=== PATIENT | male | born 1995 ===

== ENCOUNTER → 2023-01-21 | Outpatient (CLI) | payer OTHER ==
[2023-01-22 11:24] LABS: Albumin, Blood 2.8 g/dL (3.4-5.0); Albumin/Globulin Ratio 0.5 (0.8-1.8); Bilirubin, Total 0.5 mg/dL (0.1-1.0); Bun/Creatinine Ratio 9.7 (12.0-20.0); Creatinine, Blood 0.73 mg/dL (0.60-1.20); Globulin, Blood 5.2 g/dL (2.2-4.0); Potassium, Blood 5.1 mmol/L (3.5-5.5)
[2023-01-22 11:28] LABS: BASOPHILS ABSOLUTE AUTO 0.09 K/mm3 (0.00-0.23); BASOPHILS PERCENT AUTO 1 % (0-2); EOSINOPHILS ABSOLUTE AUTO 0.09 K/mm3 (0.00-0.68); EOSINOPHILS PERCENT AUTO 1 % (0-6); Hematocrit 41.6 % (37.0-53.0); Hemoglobin 13.7 g/dL (13.5-17.5); IMMATURE GRAN ABSOLUTE AUTO 0.18 K/mm3 (0.00-0.10); IMMATURE GRAN PERCENT AUTO 2 % (0-1); LYMPHOCYTES ABSOLUTE AUTO 1.87 K/mm3 (0.84-5.20); LYMPHOCYTES PERCENT AUTO 21 % (21-46); MONOCYTES ABSOLUTE AUTO 0.65 K/mm3 (0.16-1.47); MONOCYTES PERCENT AUTO 7 % (4-13); Mean Corpuscular HGB Conc 32.9 g/dL (31.5-36.5); Mean Corpuscular Volume 88 fL (80-100); Mean Platelet Volume 11.6 fL (9.1-12.4); NEUTROPHILS ABSOLUTE AUTO 5.87 K/mm3 (1.96-9.15); NEUTROPHILS PERCENT AUTO 67 % (41-73); Platelet Count 423 K/mm3 (150-400); RDW Coefficient Variation 13.4 % (11.7-14.2); RDW Standard Deviation 43.2 fL (35.1-46.3); Red Blood Cell Count 4.72 M/mm3 (4.30-5.90); White Blood Cell Count 8.75 K/mm3 (4.00-11.30)
== END | disposition home or self-care (01) ==
LOC: LAB 16:41 → LAB SHORT 16:41
PROVIDERS: Nurse Practitioner Family
DX: R53.81 Other malaise (principal); R53.83 Other fatigue
CPT/HCPCS: 80053; 85025

== ENCOUNTER 2023-06-20 11:09 | Inpatient (IN) | payer OTHER ==
[~2023-06-20] VITALS: Ht 175.3 cm; Wt 60.2 kg
[2023-06-20] VITALS (22 sets, daily range): BP systolic 98–159; BP diastolic 53–97
[2023-06-20 11:59] LABS: Albumin/Globulin Ratio 1.5 (0.8-1.8); Bilirubin, Total 2.1 mg/dL (0.1-1.0); Bun/Creatinine Ratio 8.5 (12.0-20.0); Calcium, Blood 7.6 mg/dL (8.5-10.1); Creatinine, Blood 0.59 mg/dL (0.60-1.20); Globulin, Blood 2.6 g/dL (2.2-4.0); Potassium, Blood 3.3 mmol/L (3.5-5.5); Total Protein, Blood 6.6 g/dL (6.4-8.2)
[2023-06-20 13:03] LABS: Source, Urine Condom Cath
[2023-06-20 13:13] LABS: Bilirubin, Urine Neg (Neg); Blood, Urine Neg (Neg); Glucose Qualitative, Urine 3+ (Neg); Ketones, Urine 4+ (Neg); Leukocyte Esterase, Urine Neg (Neg); Nitrite, Urine Neg (Neg); Protein, Urine Neg (Neg); Specific Gravity, Urine 1.015 (1.003-1.022); Urobilinogen, Urine NORM (Normal)
[2023-06-20 13:14] LABS: Appearance, Urine Clear (Clear); Color, Urine Pale Yellow (P-Yellow)
[2023-06-20 13:24] LABS: U Amphetamine Screen Not Detected; U Barbituate Screen Not Detected; U Benzodiazapine Screen Not Detected; U Buprenorphine Screen Not Detected; U Cannabinoids Screen Not Detected; U Cocaine Screen Not Detected; U Methadone Screen Not Detected; U Methamphetamine Screen Not Detected; U Opiates Screen Not Detected; U Oxycodone Screen Not Detected; U Phencyclidine Screen Not Detected; U Propoxyphene Screen Not Detected
[2023-06-20 13:25] LABS: BASOPHILS ABSOLUTE AUTO 0.01 K/mm3 (0.00-0.23); BASOPHILS PERCENT AUTO 0 % (0-2); EOSINOPHILS PERCENT AUTO 0 % (0-6); Hematocrit 34.2 % (37.0-53.0); IMMATURE GRAN ABSOLUTE AUTO 0.04 K/mm3 (0.00-0.10); IMMATURE GRAN PERCENT AUTO 0 % (0-1); LYMPHOCYTES ABSOLUTE AUTO 0.54 K/mm3 (0.84-5.20); LYMPHOCYTES PERCENT AUTO 5 % (21-46); MONOCYTES ABSOLUTE AUTO 0.69 K/mm3 (0.16-1.47); MONOCYTES PERCENT AUTO 6 % (4-13); Mean Corpuscular Volume 79 fL (80-100); Mean Platelet Volume 10.9 fL (9.1-12.4); NEUTROPHILS ABSOLUTE AUTO 10.37 K/mm3 (1.96-9.15); NEUTROPHILS PERCENT AUTO 89 % (41-73); Platelet Count 165 K/mm3 (150-400); RDW Coefficient Variation 11.3 % (11.7-14.2); RDW Standard Deviation 32.5 fL (35.1-46.3); Red Blood Cell Count 4.32 M/mm3 (4.30-5.90); White Blood Cell Count 11.65 K/mm3 (4.00-11.30)
[2023-06-20 13:27] LABS: Hemoglobin 12.4 g/dL (13.5-17.5); Mean Corpuscular HGB 29.4 pg (26.0-34.0)
[2023-06-20 13:28] LABS: Mean Corpuscular HGB Conc 37.1 g/dL (31.5-36.5)
--- NOTE | 2023-06-20 16:04 | NUR ---
ADMIT NOTE- PT ARRIVED ON MEDICAL FLOOR, ADMITTED THROUGH THE ED. PT AUNT AT THE BEDSIDE. PT HAS HIS EYES OPEN HOWEVER CAN NOT MEANINGFULLY RESPOND TO PEOPLE. PT HAS A NORMAL PALNTAR REFLEX THAT IS SLOW ON THE RIGHT WHEN COMPARED TO THE LEFT. THE LEFT ARM IS CONTRACTED UPON ARRIVAL, HOWEVER THE ARM IS ABLE TO BE STRAIGHTENED WITH GENTAL PRESSURE TO THE PALM. RIGHT PUPIL IS NOT VISUALIZED (PER AUNT IVAN PT BLIND IN THE RIGHT EYE SINCE ) LEFT PUPIL RESPONSE IS SLUGGISH. PT TOSSING HIS HEAD BACK AND FORTH SLOWLY EYE IS NOT TRACKING ON ANY ONE PERSON. WHEN ASKED TO TAX STAFF ACCOUNTANT STAFFS HAND WITH THE RIGHT THE PT SQUEEZES THE INDEX AND THUMB, THOSE RELEASE AND THE OTHER THREE SQUEEZE, AT NO TIME DO THEY DO SO TOGETHER. BG CHECKED 111. CALLED DR MENDEZ- PT ADMITTED FOR HYPONATREMIA. PER PT FAMILY HE DOES NOT HAVE A NORMAL PAIN RESPONSE, HE C/O RIGHT UPPER TOOTH PAIN LAST NIGHT, AND BEGAN EATING ICE AND DRINKING COPIOUS AMOUNTS OF WATER. THIS MORNING THE AUNT WENT IN TO GET HIM UP AND FOUND HIM IN THE POSITION WITH HIS ARMS CONTRACTED UNRESPONSIVE IN A BED SOAKED IN URINE STOOL AND EMESIS. THE PT IS NORMALLY INDEPEDNENT AND CONTINENT OF BOWEL AND BLADDER. ON LABS PT ELECTROLYTES ARE ALL LOW HE HAS HAD AT LEAST THREE EPISODES OF BLACK EMESIS PER THE AUNT SINCE HE ARRIVED, ED RN STATED DARK EMESIS. BG WAS 137 ON LABS.
[2023-06-20 16:22] LABS: Thyroid Stimulating Hormone 0.273 uIU/mL (0.360-4.800)
[2023-06-20 16:25] LABS: Bun/Creatinine Ratio 6.8 (12.0-20.0); Calcium, Blood 8.3 mg/dL (8.5-10.1); Creatinine, Blood 0.59 mg/dL (0.60-1.20); Potassium, Blood 3.4 mmol/L (3.5-5.5)
--- NOTE | 2023-06-20 16:48 | NUR ---
CALLED DR MENDEZ- CRITICAL VALUE NOTIFICATION SODIUM 119.
[2023-06-20 18:05] LABS: Calcium, Blood 8.2 mg/dL (8.5-10.1); Creatinine, Blood 0.63 mg/dL (0.60-1.20); Potassium, Blood 3.5 mmol/L (3.5-5.5)
--- NOTE | 2023-06-20 18:17 | NUR ---
ASSUMED CARE: PT ARRIVED FROM MEDICAL FLOOR VIA BED FOR 3% SALINE GTT DUE TO SODIUM COUNT OF 121. CALL TO DR HOLGUIN TO VERIFY ORDERS. PT'S MATERIAL FLOW ENGINEER IVAN AT BEDSIDE PROVIDING HISTORY. RIGHT PUPIL ALWAYS LARGE PER HISTORY AND LEFT PUPIL SLUGGISH, WHICH IS NEW. PT IS VERY LETHARGIC, IS NONVERBAL AT THIS TIME. LIMBS NOTED TO BE STIFF AND SLIGHTLY CONTRACTED. DR MENDEZ AT BEDSIDE DISCUSSING PLAN WITH PT'S CARE GIVERS. FAMILY STATES PT HAS TOOTH INFECTION TO RIGHT UPPER JAW AND LABS NOTED TO HAVE ELEVATED WBC. FAMILY REMAINS AT BEDSIDE AT THIS TIME.
--- NOTE | 2023-06-20 18:28 | NUR ---
TRANSFER NOTE- PT STILL NOT REALLY MEANINGFULLY RESPONDING TO STAFF. IN TRANSIT TO ICU HE DID COUGH AND HIS EYES GOT REALLY WIDE (PER PREVIOUS REPORTS THIS IS THE SIGN OF PROJECTILE VOMIT COMING) NO EMESIS AT THIS TIME PASSED THE INFO ON TO THE ICU RNS ASSUMING CARE OF THE PT. TELEPHONE REPORT COMPLETED PRIOR TO PT TRANSFER. PT WAS SLID OVER TO THE ICU BED BY STAFF, HE STARTLED A LITTLE WITH THE TRANSFER AND THEN SETTLED, CHEST XR AND HEAD CT CAME BACK NEGATIVE FOR ANY FINDINGS LIPASE NORMAL. ICU STAFF AWARE.
--- NOTE | 2023-06-20 19:45 | NUR ---
PATIENT AWAKE BUT NOT ALWAYS MAKING EYE CONTACT, FAMILY AT BEDSIDE PROVIDING GOOD SUPPORT. 3% SODIUM INFUSING AT 30 CC/HR. RIGHT JAW APPEARS SWOLLEN, FAMILY VERBALIZED HAS AN INFECTED TOOTH RIGHT UPPER JAW. PATIENT BLIND IN RIGHT EYE, PUPIL NOT RESPONDING TO LIGHT. PATIENT NONVERBAL, HX OF AUTISM AND DEVELOPMENTAL DELAY. BASELINE ABLE TO AMBULATE AND CONVERSE WITH FAMILY.
[2023-06-20 20:11] LABS: Bun/Creatinine Ratio 7.8 (12.0-20.0); Calcium, Blood 8.3 mg/dL (8.5-10.1); Creatinine, Blood 0.64 mg/dL (0.60-1.20); Potassium, Blood 3.6 mmol/L (3.5-5.5)
[2023-06-20 22:26] LABS: Osmolality, Urine 72 mos/kg (15-1400)
[2023-06-20 22:28] LABS: Sodium, Urine, Random 16 mmol/L (20-110)
[2023-06-20 22:35] LABS: Bun/Creatinine Ratio 6.9 (12.0-20.0); Creatinine, Blood 0.72 mg/dL (0.60-1.20); Potassium, Blood 3.7 mmol/L (3.5-5.5)
--- NOTE | 2023-06-20 23:02 | NUR ---
PATIENT AWAKE MOVING SELF IN BED CONTINUES TO BE NONVERBAL. NEVA LIKES TO HOLD HIS RIGHT ARM UP ON CHEST. POWER GLIDE PLACED TO LEFT UPPER ARM. 3% SODIUM NOW OFF AND DOCTOR JOYCE CONSULTED. KRIDER INFUSING. CONDOM CATH IN PLACE VOIDING LARGE AMT OF CLEAR YELLOW URINE, URINE OSMO AND SODIUM SENT.
[2023-06-21] VITALS (57 sets, daily range): BP systolic 75–133; BP diastolic 42–105
[2023-06-21 00:08] LABS: Bun/Creatinine Ratio 7.8 (12.0-20.0); Creatinine, Blood 0.77 mg/dL (0.60-1.20); Potassium, Blood 4.2 mmol/L (3.5-5.5)
--- NOTE | 2023-06-21 00:48 | NUR ---
TRANSFER TO ICU 6 VIA BED. PATIENT OLU WELL.
[2023-06-21 02:51] LABS: Bun/Creatinine Ratio 8.3 (12.0-20.0); Calcium, Blood 8.1 mg/dL (8.5-10.1); Creatinine, Blood 0.84 mg/dL (0.60-1.20); Potassium, Blood 4.8 mmol/L (3.5-5.5)
[2023-06-21 05:11] LABS: Bun/Creatinine Ratio 8.2 (12.0-20.0); Creatinine, Blood 0.85 mg/dL (0.60-1.20); Potassium, Blood 4.7 mmol/L (3.5-5.5)
--- NOTE | 2023-06-21 06:41 | NUR ---
SUMMARY PATIENT SLEEPING OFF AND ON T/O NIGHT, AWAKENS AND LOOKING AROUND ROOM THE LAYING BACK DOWN. CONTINUES TO BE NONVERBAL. CONDOM CATH FALLING OFF INCONT OF A LARGE AMT OF URINE, DURING BEDBATH PATIENT APPEARS MORE PURPOSEFUL IN PUSHING STAFF AWAY, AND MAKING EYE CONTACT. 3% SODIUM REMAINS OFF.
--- NOTE | 2023-06-21 09:39 | NUR ---
ASSUMTPION OF CARE REPORT RECEIVED FROM BETTY RN. PT RESTING IN BED. ALERT TO VERBAL STIMULI. PT TURNS HIS HEAD WHEN SPOKEN TO BUT DOES NOT RESPOND OR MAKE EYE CONTACT. PT HAS AUTISM AND IS NONVERBAL. MOVES ALL EXTREMITIES EQUALLY. PT HAS REPETATIVE HEAD MOVEMENT THAT IS NOT BASELINE FOR HIM ACCORDING TO CAREGIVER. PT ALSO HAD REPETATIVE EXTREMITY MOVEMENTS. HR 60'S SR, MAP > 65. PT ON RA. PIV TO RAC AND LFA, NETTING IN PLACE. POWERGLIDE TO ARNOLD INFUSING. CONDOM CATH AND ATTENDS IN PLACE. SCD's IN PLACE. CAREGIVER/AUNT AT THE BEDSIDE.
[2023-06-21 12:09] LABS: Hemoglobin 15.2 g/dL (13.5-17.5); Mean Corpuscular HGB 29.6 pg (26.0-34.0); Mean Corpuscular HGB Conc 37.1 g/dL (31.5-36.5); Mean Corpuscular Volume 80 fL (80-100); Mean Platelet Volume 10.8 fL (9.1-12.4); Platelet Count 224 K/mm3 (150-400); RDW Standard Deviation 34.5 fL (35.1-46.3); Red Blood Cell Count 5.14 M/mm3 (4.30-5.90); White Blood Cell Count 10.81 K/mm3 (4.00-11.30)
[2023-06-21 12:35] LABS: Anion Gap 6 mmol/L (6-16); Blood Urea Nitrogen 9 mg/dL (8-24); Bun/Creatinine Ratio 9.9 (12.0-20.0); CO2, Blood 25 mmol/L (21-32); Calcium, Blood 8.7 mg/dL (8.5-10.1); Chloride, Blood 103 mmol/L (98-108); Creatinine, Blood 0.91 mg/dL (0.60-1.20); Glomerular Filtration Rate 118 (60-); Glucose, Blood 94 mg/dL (70-99); Potassium, Blood 4.3 mmol/L (3.5-5.5); Sodium, Blood 134 mmol/L (136-145)
[2023-06-21 17:37] LABS: Anion Gap 5 mmol/L (6-16); Blood Urea Nitrogen 10 mg/dL (8-24); Bun/Creatinine Ratio 9.5 (12.0-20.0); CO2, Blood 25 mmol/L (21-32); Calcium, Blood 8.7 mg/dL (8.5-10.1); Chloride, Blood 101 mmol/L (98-108); Creatinine, Blood 1.05 mg/dL (0.60-1.20); Glomerular Filtration Rate 100 (60-); Glucose, Blood 188 mg/dL (70-99); Phosphorus, Blood 1.7 mg/dL (2.5-4.9); Sodium, Blood 131 mmol/L (136-145)
--- NOTE | 2023-06-21 18:50 | NUR ---
SHIFT SUMMARY PT SITTING IN BEDSIDE RECLINER. PT ALERT, ABLE TO ANSWER SOME QUESTIONS. HR 90'S SR, MAP > 65. PT ON RA, LUNG SOUNDS CLEAR. CONDOM CATH IN PLACE. POWERGLIDE TO ARNOLD. PIV TO LEFT FOREARM.
--- NOTE | 2023-06-21 20:06 | NUR ---
PATIENT SITTING IN CHAIR WATCHING TV. AT TIMES ROCKING BACK AND FORTH. ANSWERING QUESTIONS APPROPRIATELY. PATIENTS CASTING AGENT IVAN VERBALIZED THAT HE IS MORE AT HIS BASELINE NOW. HX DEVELOPMENTALLY DELAYED AND AUTISM. PATIENT RESTLESS DENIES URGE TO VOID AT THIS TIME, ATTENDS IN PLACE.
[2023-06-21 23:51] LABS: Albumin, Blood 3.9 g/dL (3.4-5.0); Anion Gap 5 mmol/L (6-16); Blood Urea Nitrogen 10 mg/dL (8-24); Bun/Creatinine Ratio 10.8 (12.0-20.0); CO2, Blood 28 mmol/L (21-32); Calcium, Blood 8.6 mg/dL (8.5-10.1); Chloride, Blood 103 mmol/L (98-108); Creatinine, Blood 0.93 mg/dL (0.60-1.20); Glomerular Filtration Rate 115 (60-); Glucose, Blood 102 mg/dL (70-99); Phosphorus, Blood 4.1 mg/dL (2.5-4.9); Potassium, Blood 4.5 mmol/L (3.5-5.5); Sodium, Blood 136 mmol/L (136-145)
[2023-06-22] VITALS (14 sets, daily range): BP systolic 95–108; BP diastolic 55–77
[2023-06-22 04:24] LABS: Hematocrit 43.4 % (37.0-53.0); Hemoglobin 15.6 g/dL (13.5-17.5); Mean Corpuscular HGB 29.5 pg (26.0-34.0); Mean Corpuscular HGB Conc 35.9 g/dL (31.5-36.5); Mean Corpuscular Volume 82 fL (80-100); Platelet Count 228 K/mm3 (150-400); RDW Coefficient Variation 12.3 % (11.7-14.2); RDW Standard Deviation 36.6 fL (35.1-46.3); Red Blood Cell Count 5.29 M/mm3 (4.30-5.90); White Blood Cell Count 9.47 K/mm3 (4.00-11.30)
[2023-06-22 04:43] LABS: Albumin, Blood 4.1 g/dL (3.4-5.0); Anion Gap 5 mmol/L (6-16); Blood Urea Nitrogen 9 mg/dL (8-24); Bun/Creatinine Ratio 9.6 (12.0-20.0); CO2, Blood 28 mmol/L (21-32); Calcium, Blood 8.9 mg/dL (8.5-10.1); Chloride, Blood 104 mmol/L (98-108); Creatinine, Blood 0.93 mg/dL (0.60-1.20); Glomerular Filtration Rate 115 (60-); Glucose, Blood 98 mg/dL (70-99); Magnesium, Blood 2.4 mg/dL (1.6-2.4); Phosphorus, Blood 3.3 mg/dL (2.5-4.9); Potassium, Blood 4.5 mmol/L (3.5-5.5); Sodium, Blood 137 mmol/L (136-145)
--- NOTE | 2023-06-22 06:32 | NUR ---
SUMMARY PATIENT SLEEPING OFF AND ON T/O NIGHT. INCONT OF LARGE AMT OF URINE SEVERAL TIMES T/O NIGHT, ABLE TO VOID 200-300 CC YELLOW URINE WHILE CHANGING ATTENDS. PATIENT NOT CALLING WHEN WET, REQUIRING NURSING TO ASK FREQUENTLY IF HE FEELS LIKE HE NEEDS TO GO TO THE BATHROOM, OR IF HE IS WET. ABLE TO STAND AND TRANSFER TO CHAIR AND BSC WITH MIN ASSIST. VSS, WHILE SLEEPING HEART RATE DOWN TO LOW 50'S, AND HEART RATE UP TO 120'S WITH ACTIVITY.
--- NOTE | 2023-06-22 08:18 | NUR ---
ASSUMPTION OF CARE REPORT RECEIVED FROM NOC RN. PT RESTING IN BED. ALERT, ABLE TO ANSWER MOST QUESTIONS. HR 80'S SR, MAP > 65. PT UP TO BEDSIDE RECLINER FOR BREAKFAST. PT ON RA. PT DENIES ANY PAIN. POWERGLIDE TO ARNOLD, PIV TO LEFT FOREARM.
[2023-06-22] MEDS ORDERED: AMOCLA875 PO (11:08)
[2023-06-22] MEDS ORDERED: VISBIOME 112.51 EACH PO (11:09)
--- NOTE | 2023-06-22 11:55 | NUR ---
Pt. is sitting up in a chair and welcomes my visit. Pt. is pleasant and verbalizes anticipation for a discharge soom. Pt. verbalized about his congregational and family, and rapport is established. Pryaed with Pt. Pt. verbalized gratitude for the spiritual care visit.
--- NOTE | 2023-06-22 13:46 | NUR ---
DISCHARGE/SHIFT SUMMARY PT SITTING IN BEDSIDE RECLINER. ALERT, ABLE TO ANSWER QUESTIONS. HR 90-100'S SR, SBP 90-100'S, PT ON RA, OXYGEN SATURATION 100%. NO COMPLAINTS OF PAIN. PIV TO LFA REMOVED, POWERGLIDE TO ARNOLD REMOVED. PT BELONGINGS GIVEN TO AUNT/CAREGIVER. AUNT, UNCLE AND PATIENT ALL STATED THAT THEY UNDERSTOOD DISCHARGE INSTRUCTIONS AND HAD NO FURTHER QUESTIONS. PT AMBULATED OUT OF UNIT WITH AUNT AND UNCLE. DISCHARGE COMPLETE.
== END 2023-06-22 13:10 | disposition home or self-care (01) | DRG 644 ==
LOC: ER 11:09 → ICUE 13:40 → MEDS 13:40 → ICUE 18:22
PROVIDERS: Emergency Medicine; Family Medicine Adult Medicine; Nurse Practitioner Acute Care; Student in an Organized Health Care Education/Training Program; ADMIT Internal Medicine
DX: E22.2 Syndrome of inappropriate secretion of antidiuretic hormone (principal); E87.3 Alkalosis; F84.0 Autistic disorder; K92.0 Hematemesis; K05.219 Aggressive periodontitis, localized, unspecified severity; E87.6 Hypokalemia; R62.50 Unspecified lack of expected normal physiological development in childhood; G40.909 Epilepsy, unspecified, not intractable, without status epilepticus; E87.8 Other disorders of electrolyte and fluid balance, not elsewhere classified
CPT/HCPCS: 36415; 70450; 71045; 80048; 80053; 80069; 81003; 82533; 82947; 83690; 83735; 83930; 83935; 84300; 84443; 85025; 85027; 96374; 99285-25; C1751; J0295; J1885; J2405; J3480; J7050; J7060; J7070

== ENCOUNTER → 2023-06-25 | Outpatient (CLI) | payer OTHER ==
[~2023-06-25] MED LIST: AMOCLA875 PO; VISBIOME 112.51 EACH PO
[2023-06-25 17:16] LABS: Bun/Creatinine Ratio 12.6 (12.0-20.0); Calcium, Blood 8.8 mg/dL (8.5-10.1); Creatinine, Blood 0.87 mg/dL (0.60-1.20); Potassium, Blood 4.5 mmol/L (3.5-5.5)
[2023-06-25 17:29] LABS: Hematocrit 42.1 % (37.0-53.0); Hemoglobin 14.5 g/dL (13.5-17.5); Mean Corpuscular HGB 29.7 pg (26.0-34.0); Mean Corpuscular HGB Conc 34.4 g/dL (31.5-36.5); Mean Corpuscular Volume 86 fL (80-100); Mean Platelet Volume 11.8 fL (9.1-12.4); Platelet Count 269 K/mm3 (150-400); RDW Coefficient Variation 12.4 % (11.7-14.2); RDW Standard Deviation 38.5 fL (35.1-46.3); Red Blood Cell Count 4.89 M/mm3 (4.30-5.90); White Blood Cell Count 6.56 K/mm3 (4.00-11.30)
== END | disposition home or self-care (01) ==
LOC: LAB SHORT 16:20 → LAB 16:20
PROVIDERS: Nurse Practitioner Family
DX: E87.1 Hypo-osmolality and hyponatremia (principal)
CPT/HCPCS: 80048; 85027

== ENCOUNTER → 2025-03-29 | Outpatient (CLI) | payer OTHER ==
[2025-03-29 17:37] LABS: BASOPHILS ABSOLUTE AUTO 0.04 K/mm3 (0.00-0.23); BASOPHILS PERCENT AUTO 1 % (0-2); EOSINOPHILS ABSOLUTE AUTO 0.17 K/mm3 (0.00-0.68); EOSINOPHILS PERCENT AUTO 4 % (0-6); Hematocrit 45.3 % (37.0-53.0); Hemoglobin 15.5 g/dL (13.5-17.5); IMMATURE GRAN ABSOLUTE AUTO 0.01 K/mm3 (0.00-0.10); IMMATURE GRAN PERCENT AUTO 0 % (0-1); LYMPHOCYTES ABSOLUTE AUTO 1.51 K/mm3 (0.84-5.20); LYMPHOCYTES PERCENT AUTO 34 % (21-46); MONOCYTES ABSOLUTE AUTO 0.40 K/mm3 (0.16-1.47); MONOCYTES PERCENT AUTO 9 % (4-13); Mean Corpuscular HGB Conc 34.2 g/dL (31.5-36.5); Mean Corpuscular Volume 88 fL (80-100); NEUTROPHILS ABSOLUTE AUTO 2.27 K/mm3 (1.96-9.15); NEUTROPHILS PERCENT AUTO 52 % (41-73); NRBC ABSOLUTE 0.00 K/mm3 (0.00-0.02); NRBC Auto 0.0 /100 WBC (0.0-0.2); Platelet Count 198 K/mm3 (150-400); RDW Coefficient Variation 11.6 % (11.7-14.2); RDW Standard Deviation 37.4 fL (35.1-46.3)
[2025-03-29 21:46] LABS: Alanine Aminotransfer (ALT/SGP 25.0 U/L (12-78); Albumin, Blood 4.3 g/dL (3.4-5.0); Albumin/Globulin Ratio 1.3 (0.8-1.8); Anion Gap 6.0 mmol/L (3-11); Aspartate Aminotrans (AST/SGOT 14.0 U/L (12-37); Bilirubin, Total 1.0 mg/dL (0.1-1.0); Blood Urea Nitrogen 11.0 mg/dL (8-24); CO2, Blood 30.0 mmol/L (21-32); Calcium, Blood 9.5 mg/dL (8.5-10.1); Chloride, Blood 104.0 mmol/L (98-108); Creatinine, Blood 0.96 mg/dL (0.60-1.20); Globulin, Blood 3.4 g/dL (2.2-4.0); Glucose, Blood 96.0 mg/dL (70-99); Potassium, Blood 4.4 mmol/L (3.5-5.5); Sodium, Blood 136.0 mmol/L (136-145); Total Protein, Blood 7.7 g/dL (6.4-8.2)
== END ==
LOC: LAB SHORT 15:54 → LAB 15:54
PROVIDERS: Nurse Practitioner Family
DX: E46 Unspecified protein-calorie malnutrition (principal)
CPT/HCPCS: 80053; 85025